=== PATIENT | female | born 1985 | race Caucasian/White ===

== ENCOUNTER 2023-08-02 12:04 | Day surgery (SDC) | payer OTHER, SELFPAY ==
[2023-07-30 13:43] VITALS: BMI 50.1
[2023-08-02] VITALS (14 sets, daily range): BP systolic 124–166; BP diastolic 74–86; PULSE 82–107; RESP 14–18; TEMP 36.1–37; O2SAT 92–99; BMI 50.1; BMI 51.3
--- NOTE | 2023-08-02 | PATH_ITS ---
[facility] Accession Number: [id number] No. of containers..01 Tissue . 01 Material submitted: . uterus - UTERUS,BILATERAL FALLOPIAN TUBES . 01 Diagnosis: UTERUS, BILATERAL FALLOPIAN TUBES, HYSTERECTOMY AND BILATERAL SALPINGECTOMY (PRESERVED CERVIX AND OVARIES): Morcellated uterus, weight 77 grams. - Endometrium: Secretory endometrium without atypical hyperplasia or malignancy, on customer account representative sections. - Myometrium: Negative for adenomyosis or leiomyomas, on customer account representative sections. Benign bilateral fallopian tubes without pathologic abnormalities. [facility] 08/08/2023 1708 Local . 01 Electronically signed: . Chelsey Felder MD, Pathologist NPI- [id number] . 01 Gross description: . Received in formalin with two identifiers and uterus and bilateral fallopian tubes, is a morcellated uterus (77 grams, 11.2 x 8.7 x 4.5 cm) with two unoriented, fimbriated fallopian tubes (5.1 x 0.9 cm and 3.2 x 0.8 cm, respectively), with no cervix or additional adnexa. The serosa is wise, smooth, and unremarkable. The endometrium is wise to brown, velvety, and averages 0.1 cm thick. The myometrium is wies and mildly trabeculated with no distinct nodules or lesions identified. . The tubes have violaceous smooth serosa with few, minute cystic structures measuring up to 0.2 cm in greatest dimension, filled with cloudy serous fluid. The lumens are stellate and unremarkable. Rewinder Operator sections are submitted as follows: . A1. Endometrium. A2: Longer fallopian tube to include one-half of bisected fimbriae and cross sections. A3: Piggott fallopian tube to include one-half of bisected fimbriae and cross sections. ([id number]) /MRV 08/08/2023 1708 Local . 01 Pathologist provided ICD-10: R93.89, N92.1, N94.6, E28.0 . 01 CPT . 000191 Specimen Comment: A courtesy copy of this report has been sent to [phone] Performed at: [address] [address], [place], [place] [id number] MD Umer Williamson MD Phone: [phone]
[2023-08-02] MEDS: LACTATED RINGERS 1,000 ML 42 ML IV (12:56)
[2023-08-02] MEDS: ACETAMINOPHEN 325 MG TABLET 975 MG PO (12:58)
--- NOTE | 2023-08-02 14:34 | PM.PREOP ---
Pre-operative Note Interval Note History & Physical reviewed/Exam performed by Physician: Yes Changes to H&P: No H&P completed within 30 days and has changed as indicated here:: 07/18/23
[2023-08-02] MEDS: CEFAZOLIN VIAL 3 GM in SODIUM CHLORIDE 0.9% 100 ML IV (15:45)
--- NOTE | 2023-08-02 16:07 | SUR.OPER ---
Lithotomy on padded OR bed. [place] Pad Positioner under torso. Head on pillow, arms padded and tucked at sides. Legs secured in padded yellow fins stirrups.
[2023-08-02] MEDS: BUPIVACAINE 0.5% (PF) 30 ML, EPINEPHrine 0.15 MG INJ (16:32)
--- NOTE | 2023-08-02 18:05 | P.OP_ITS ---
Operative Date/Time/Diagnoses Date of procedure: 08/02/23 Time of procedure: 18:05 Pre-op diagnosis: Simple endometrial hyperplasia Post-op diagnosis: same Procedure & Clinicians Procedure: Procedures Operation Date: 08/02/23 13:30 Actual Procedure Side Surgeon p Laparoscopic Supracervical Hysterectomy with bilateral salpingectomy Bilateral Eduarda Rodriguez MD Indications: 38-year-old 1 para 1 with simple endometrial hyperplasia by biopsy Surgeon: Eduarda Rodriguez Brick Veneer Maker: Hawk Cruz Anesthesia Type: General and Local Operative Notes Findings: 7 week size anteverted uterus Normal tubes Polycystic ovaries Normal liver and gallbladder Appendix not visualized Closure Type: primary Specimen(s): left tube, right tube and uterus Applied: catheter (Removed at the end of the case) Estimated blood loss (mL): 50 Blood products transfused: none Procedure in detail: The patient was taken to the operating room where she was placed in the dorsal supine position. After adequate general endotracheal anesthesia was achieved, she was placed in the dorsal lithotomy position, and prepped and draped in the usual sterile fashion. A timeout was performed. A bivalve speculum was placed into the vagina and the anterior lip of the cervix grasped with a single-tooth tenaculum. The cervical os was sequentially dilated until the ZUMI uterine manipulator could pass easily into the endometrial cavity. The single-tooth tenaculum was removed from the anterior lip of the cervix, and the bivalve speculum was removed from the vagina. Attention was then turned to the abdomen where 6 mL of half percent Marcaine with epinephrine were injected in the umbilical fold. A 5 mm incision was made. The long Verees needle was placed into the peritoneal cavity, and its placement confirmed by aspiration and drop test. The abdomen was insufflated with 3.8 L of CO2. The Verees needle was removed. A long 5 mm trocar was placed without difficulty. 2 other incisions were made 4 cm lateral to the umbilicus after 5 mL of half percent Marcaine with epinephrine were injected. These were 5 mm incisions. Two long 5 mm trocars were placed under direct visualization. The right tube was grasped with an atraumatic grasper. Using the power seal, the mesosalpinx was cauterized and cut all the way down to the cornua of the uterus. The tubes were removed through the side trocar. The cornua of the uterus was then grasped with an atraumatic grasper. The utero-ovarian ligaments were cauterized and cut. The round ligament and broad ligament was cauterized and cut with the power seal Hemostasis was achieved. The bladder flap was created using the power seal with cautery and cut intermediate across. The uterine arteries on the right side were extensively cauterized with the power seal. All of this was repeated on the left side. The remainder of the bladder flap was created using the power seal, and the bladder taken down off the lower uterine segment and cervix. Using the [place], the cervix was amputated from the uterus 2 cm above the uterosacral ligaments, after the ZUMI uterine manipulator was removed from the uterus. There was a small amount of bleeding noted from the posterior edge of the cervix, and this was cauterized for hemostasis. The endocervical canal was extensively cauterized with the spatula cautery. A sponge stick was placed into the vagina. 6 mL of half percent Marcaine with epinephrine were injected above the pubic symphysis. A long 12 mm trocar was placed. An Endobag was placed through the suprapubic trocar and the uterus was placed into the Endobag. The trocar was removed. The edges of the endobag were brought up through the skin. The fascial incision was extended. The uterus was grasped with a Breana. The Christopher was placed into the endobag. The uterus was hand morcellated in approximately 15 pieces. The Endobag with the Christopher were removed from the peritoneal cavity. The fascia on the suprapubic incision was closed with 0 Vicryl in a running fashion. The abdomen was re-insufflated with carbon dioxide gas. The pelvis was copiously irrigated with warm normal saline. No bleeding was noted. 20 cc of 0.2% ropivacaine were placed over the pedicles. The instruments were removed from the abdomen. The CO2 was allowed to escape. The suprapubic incision was closed in the subcutaneous layer with 2 simple interrupted sutures with 3-0 Vicryl. All of the incisions were closed with 4-0 Biosyn in a subcuticular fashion. Steri-Strips and Allevyn dressings were placed. The moistened sponge stick was removed from the vagina. Sponge, lap, and instrument counts were correct x-2. The patient tolerated the procedure well, was taken to PACU in stable condition. Complications: none Post-operative Condition: stable Disposition: PACU Plan for aftercare: Home after recovery
[2023-08-02] MEDS: LACTATED RINGERS 1,000 ML 100 ML IV (19:00)
[2023-08-02] MEDS: OXYCODONE IR 5 MG TABLET 10 MG PO (20:09)
[2023-08-02] MEDS: DOCUSATE 100 MG CAPSULE 200 MG PO (20:19)
[2023-08-02] MEDS: KETOROLAC 30 MG/ML VIAL IV (22:49)
[2023-08-03 04:17] VITALS: BP 102/54; PULSE 96; RESP 16; TEMP 36.3; O2SAT 95
[2023-08-03] MEDS: KETOROLAC 30 MG/ML VIAL IV ×2 (04:42→10:04)
[2023-08-03 05:55] LABS: Add Manual Diff / Slide Review NO; Basophils Absolute Auto 0 /uL (0-100); Basophils Percent Auto 0.2 % (0-2); Eosinophils Absolute Auto 0 /uL (0-450); Hematocrit 37.3 % (36-46); Hemoglobin 12.6 g/dL (12.0-16.0); Lymphocytes Absolute Auto 1800 /uL (1100-4500); Lymphocytes Percent Auto 14.5 % (25-40); Mean Corpuscular HGB Conc 33.9 % (30-36); Mean Corpuscular Hemoglobin 29.4 PG (26-34); Mean Corpuscular Volume 86.6 fL (80-100); Monocytes Absolute Auto 1000 /uL (0-900); Monocytes Percent Auto 7.8 % (3-14); Neutrophils Absolute Auto 9600 /uL (1500-7000); Neutrophils Percent Auto 77.5 % (50-75); Platelet Count 243 X10^3/uL (150-400); Red Cell Distribution Width 13.4 % (11.6-14.8); White Blood Cell Count 12.4 X10^3/uL (4.5-11.0)
[2023-08-03] MEDS: DOCUSATE 100 MG CAPSULE 200 MG PO (08:06)
[2023-08-03 09:05] VITALS: BP 141/71; PULSE 81; RESP 18; TEMP 36.4; O2SAT 98
--- NOTE | 2023-08-03 10:45 | PC.NURSE ---
Day shift: Left unit via WC at approx 1035. Taken by PCT Maya. Pt's Spouse is driving her home. Given IV Toredol just prior to d/c per Dr Rodriguez. Paperwork signed and all questions answered. scripts sent electronic to Pt's pharmacy. Pt has all personal belongings.
--- NOTE | 2023-08-03 13:24 | CM.DANOTE ---
DCP Assessment Visit Note Reviewed EMR and team rounds for status updates. Met with pt at bedside to introduce self and role, pt was found to be walking around the room, getting ready for home d/c. She lives independently with her spouse in their own home in [place]. Spouse is driving her home. Payor: Alicia PINTO PCP: Dr. Cruz Attending: Dr. Rodriguez Pt is a 38 year-old F post-op day 1 from a laparoscopic hysterectomy and bilateral salpingectomy. She has a PMH of excessive,frequent and painful menstruation. She is expressing feeling much better today, and has been medically cleared for discharge. No needs were identified for CM assistance at this time. Discharge Planning/Care Management CM Discharge Assessment Start: 08/03/23 13:22 Freq: Status: Active Protocol: Document 08/03/23 13:23 DPL (Rec: 08/03/23 13:24 DPL [id number]) Discharge Planning Assessment Assigned Geophysical Computer MARNIO Maldonado Advance Directives? No History Provided By Patient,Medical Record Has Patient been admitted in last 30 No days? Prior Living Arrangements House Household Members spouse,children Type of transporation used prior to Drives own vehicle admit Caregiver for Another Yes Comment N/A Comment OP surgery f/u Barriers to Discharge No Discharge Plan Foster Care Transportation Arrangement Spouse Referrals Initiated None needed Review Status In Process Please Provide Date Initial DC 08/03/23 Assessment Was Performed Pre-Anesthesia Assessment Start: 07/30/23 13:43 Freq: Status: Complete Protocol: Document 07/30/23 13:43 CAB (Rec: 07/30/23 13:49 CAB [id number]) Pre-Anesthesia Assessment Patient Information Reviewed Via Chart Review Seen Specialist in Last 12 Months Yes Specialist Seen Computer Systems Software Architect Primary Language Japanese Sales And Marketing Specialist Required No Height 165.1 cm Weight 136.531 kg Body Mass Index (BMI) 50.1 Barriers to Learning None Anesthesia Review Requested No Market Investigator No Smoking Status Never smoker History of Falling (Recent or History of No ) Patient is completely paralyzed or No completely immobile Mental Status Oriented to own ability Is patient on oxygen? No Currently Taking a Beta Daniel No Anti-Coagulant Therapy No Has a Technology Professional No Cardiac Testing No Hx Pacemaker/ICD No Pacemaker Rep Required? No Cardiac Clearance Received Not Applicable Chronic UTI No Urinary Catheter Present No Hx Urinary Self Catheterization No Patient No Lactating No Marital Status Lives With spouse,children Patient Discharge Plan Description Return Home
--- NOTE | 2023-09-05 23:00 | PM.DS.1 ---
History of Present Illness History of Present Illness Date Patient Seen: 08/03/23 Time Patient Seen: 07:30 Chief complaint: Lap supracervical hysterectomy w/fatmata salp *OPB* Narrative: Patient is a 38-year-old postop day # 1 status post laparoscopic supracervical hysterectomy with bilateral salpingectomy. She stayed overnight per anesthesia request. Her pain is well controlled. She has voided without the catheter. She has tolerating a diet. No nausea or vomiting. She is passing flatus. Discharge Providers Provider Discharge Date: 08/03/23 Primary care physician: Doctor Palomo MD Discharge provider: Eduarda Rodriguez MD Summary Hospital Course Discharge Diagnosis: Simple endometrial hyperplasia Status post laparoscopic supracervical hysterectomy with bilateral salpingectomy Hospital Course: Patient is a 38-year-old who underwent a scheduled laparoscopic supracervical hysterectomy with bilateral salpingectomy without complication. Per anesthesia request she spent the night. This morning her pain is well controlled. She is tolerating a diet. No nausea or vomiting. She has voided without the catheter. She is ambulating without assistance. She is discharged home to follow-up in 2 weeks Status at Discharge Cognitive/behavioral status at discharge: oriented Functional status at discharge: independent ambulation Overall status at discharge: patient is progressing back to baseline Time Spent with Patient Time spent: Less than 30 minutes Exam Vital Signs (past 8 hours): Oxygen Delivery Method Room Air Oxygen Flow Rate 0 Narrative Exam Narrative: Generally: Patient is sitting up in bed, no acute distress Lungs: Clear to auscultation bilaterally Cardiovascular: Regular rate and rhythm Abdomen: Soft, appropriately tender. Incisions: Clean dry and intact with Allevyn dressings Extremities: Negative Homans Objective Labs 08/03/23 05:35 PFSH Medical History (Updated 03/10/23 @ 21:57 by Nisa Sharif) Psoriasis (~2013) Rheumatoid arthritis (~2013) Ovarian cyst Irregular menstrual cycle Hemorrhoid (~2007) Dysmenorrhea Surgical History (Updated 07/10/17 @ 05:52 by Conversion Provider) History of third molar tooth extraction Status post delivery (08/29/12) Family History (Updated 03/10/23 @ 22:02 by Nisa Sharif) Grandfather Diabetes mellitus Stroke Heart disease Hypertension Grandmother Diabetes mellitus Heart disease Hypertension Mother Age: 68 DMII (diabetes mellitus, type 2) Hypertension Grandmother Diabetes mellitus Heart disease Hypertension Sister Age: 46 Mental health problem Father Heart disease Hypertension Social History household members: spouse and children Smoking Status: Never smoker alcohol intake: never Discharge Assessment & Plan Assessment and Plan Assessment: Postop day, doing very well # 1 status post LSCH/bilateral salpingectomy Plan of Treatment: Discharged home Follow-up in 2 weeks Discharge Plan Discharge Plan Patient Disposition: Home Provider Discharge Comment: Call with fever, chills, redness or drainage around the incisions, or bleeding vaginally more than spotting to light Ibuprofen 600 mg every 6 hours as needed Tylenol 650 mg every 6 hours as needed Discharge orders & Medications Discharge Orders: Discharge (Order); Ordered 08/03/23 Ordered By: Eduarda Rodriguez Prescriptions: New oxycodone 5 mg tablet 5 mg PO Q4H PRN (Reason: pain) Qty: 20 0RF No Action No Known Home Medications Follow up/Referrals: Eduarda Rodriguez MD [Physician] - (Postop appointments already scheduled) Diet/Activity/Treatments Diet: Regular Activity: No heavy lifting for the first week Skin/Wound/Dressing Care Report to your healthcare provider any signs of infection, such as:: chills, fever, increased pain, unusual drainage and unusual redness Visit Report/Discharge Packet Instructions: DI for Hysterectomy, DI for Laparoscopy, DI for Prescription Opioid Use Stand Alone Forms: Patient Portal/API, Surgery Discharge Discharge Data Primary Care Provider: Miscellaneous,Doctor Attending Provider: Eduarda Rodriguez Quality VTE Deep Vein Thrombosis/Pulmonary Embolism Present on Admission: No
== END 2023-08-03 10:47 | disposition home or self-care (01) ==
LOC: OR 12:06 → AC 12:06
PROVIDERS: Referring Provider Obstetrics & Gynecology; Visit Provider Obstetrics & Gynecology
PROC: 0UT94ZL Resection of Uterus, Supracervical, Percutaneous Endoscopic Approach (ICD-10-PCS; CPT 58542; principal; 2023-08-02 13:30)
DX: N85.01 Benign endometrial hyperplasia (principal); R93.89 Abnormal findings on diagnostic imaging of other specified body structures; N92.1 Excessive and frequent menstruation with irregular cycle; N94.6 Dysmenorrhea, unspecified; E28.2 Polycystic ovarian syndrome
CPT/HCPCS: 58542; 36415; 85025; J0171; J0330; J0690; J1100; J1885; J2405; J2704; J3010; J3490